=== PATIENT | female | born 1975 | race Caucasian/White ===

== ENCOUNTER 2023-07-26 16:02 | Emergency (ER) | payer OTHER ==
[~2023-07-26] VITALS: Ht 165.1 cm; Wt 98.4 kg
[2023-07-26] MEDS ORDERED: SYNTHROID125 MCG PO (16:32)
[2023-07-26] MEDS ORDERED: PROGESTERONE200 MG PO (16:33)
[2023-07-26] MEDS ORDERED: ESTRACE1 MG PO (16:34)
[2023-07-26] MEDS ORDERED: CEPHALEXIN250 M1 PO (16:34)
[2023-07-26] MEDS ORDERED: CYTOMEL5 MCG PO (16:35)
[2023-07-26 16:41] LABS: BILIRUBIN, URINE NEGATIVE (negative); BLOOD/HGB, URINE NEGATIVE (Negative); KETONE, URINE NEGATIVE (Negative); LEUK ESTERASE, URINE NEGATIVE (negative); NITRITE, URINE NEGATIVE (negative)
[2023-07-26 16:48] LABS: BACTERIA, URINE NONE SEEN /hpf (negative); CASTS, URINE NONE SEEN \\lpf; COLLECTION TYPE, URINE CLEAN CATCH; CRYSTALS, URINE NONE SEEN (0-1+); EPITHELIAL CELLS, URINE SQUAMOUS 1+ /lpf (0-1+); RED BLOOD CELLS, URINE 0-1 /hpf (0-5); REFLEX CULTURE, URINE No (No); WHITE BLOOD CELLS, URINE 0-1 /HPF (0-5)
[2023-07-26 18:02] VITALS: BP 140/103
== END 2023-07-26 18:02 | disposition home or self-care (01) ==
LOC: ED 16:02
PROVIDERS: Emergency Medicine
DX: R10.9 Unspecified abdominal pain (principal); E03.9 Hypothyroidism, unspecified; Z88.5 Allergy status to narcotic agent; Z91.048 Other nonmedicinal substance allergy status; Z79.899 Other long term (current) drug therapy
CPT/HCPCS: 74176; 81001; 99284-25

== ENCOUNTER 2025-01-11 22:31 | Emergency (ER) | payer OTHER ==
[~2025-01-11] VITALS: Ht 162.6 cm; Wt 76.8 kg
[~2025-01-11 22:31] MED LIST: CEPHALEXIN250 M1 PO; CYTOMEL5 MCG PO; ESTRACE1 MG PO; PROGESTERONE200 MG PO; SYNTHROID125 MCG PO
[2025-01-12] MEDS ORDERED: BACLOFEN5 MG PO (00:13)
[2025-01-12] MEDS ORDERED: HYDROXYZINE HCL10 MG PO (00:15)
[2025-01-12 00:27] LABS: BILIRUBIN, URINE NEGATIVE (negative); BLOOD/HGB, URINE NEGATIVE (Negative); KETONE, URINE TRACE (Negative); LEUK ESTERASE, URINE NEGATIVE (negative); NITRITE, URINE NEGATIVE (negative)
[2025-01-12 00:33] LABS: BASOPHILS 0.5 % (0-2); EOSINOPHILS 0.5 % (0-6); HEMATOCRIT 45.2 % (35.0-50.0); HEMOGLOBIN 15.6 g/dL (12.0-18.0); LYMPHOCYTES 22.6 % (24-44); MCHC 34.6 g/dl (30-36); MCV 89.6 fl (81-99); MONOCYTES 4.9 % (0-12); NEUTROPHILS 71.5 % (39-80); PLATELET COUNT 361 K/uL (140-440); RBC 5.05 M/ul (4.3-5.7); RDW 13.5 (10.5-15.0)
[2025-01-12 00:43] LABS: AMPHETAMINES, URINE NEGATIVE (NEGATIVE); BARBITURATES, URINE NEGATIVE (NEGATIVE); BENZODIAZEPINE, URINE NEGATIVE (NEGATIVE); BUPRENORPHINE, URINE NEGATIVE (NEGATIVE); CANNABINOID, URINE POSITIVE (NEGATIVE); COCAINE, URINE NEGATIVE (NEGATIVE); ECSTASY, URINE NEGATIVE (NEGATIVE); FENTANYL, URINE NEGATIVE (NEGATIVE); METHADONE, URINE NEGATIVE (NEGATIVE); OPIATES, URINE NEGATIVE (NEGATIVE); OXYCODONE, URINE NEGATIVE (NEGATIVE); PHENCYCLIDINE, URINE NEGATIVE (NEGATIVE)
[2025-01-12] MEDS ORDERED: HYDROCODONE/ACETA 5/325 TAB PO ONE (00:45)
[2025-01-12 00:58] LABS: ACETAMINOPHEN 2 ug/mL (10-30); ALBUMIN 3.8 g/dL (3.4-5.0); ALCOHOL, MEDICAL 162 ng/dL (<3); ALKALINE PHOSPHATASE 153 U/L (46-116); ALT (SGPT) 23 U/L (14-59); ANION GAP 8.9 (7-21); AST (SGOT) 20 U/L (15-37); BILIRUBIN, TOTAL 0.3 mg/dL (0.2-1.0); BUN/CREATININE RATIO 16.52 (6.0-28.6); CALCIUM 9.6 mg/dL (8.5-10.1); CARBON DIOXIDE 19 mmol/L (21-32); CHLORIDE 98 mmol/L (98-107); CREATININE, SERUM 1.21 mg/dL (0.55-1.02); GLOMERULAR FILTRATION RATE,EST 55 mL/min (>60); POTASSIUM 3.9 mmol/L (3.5-5.1); PROTEIN, TOTAL 7.6 g/dL (6.4-8.2); SALICYLATE 1.6 mg/dL (2.8-20.0); TSH, 3RD GENERATION 0.409 uIU/mL (0.358-3.740); UREA NITROGEN 20 mg/dL (7-18)
[2025-01-12 01:11] LABS: CORONAVIRUS COVID-19 AG NEGATIVE (NEGATIVE)
[2025-01-12] MEDS ORDERED: SODIUM CHLORIDE 0.9% 1,000 ML IV PRN (01:45)
[2025-01-12 02:58] LABS: ANION GAP 17.1 (7-21); BUN/CREATININE RATIO 18.55 (6.0-28.6); CALCIUM 8.8 mg/dL (8.5-10.1); CREATININE, SERUM 0.97 mg/dL (0.55-1.02); POTASSIUM 4.1 mmol/L (3.5-5.1)
[2025-01-12 03:26] VITALS: BP 128/88
[2025-01-12] MEDS ORDERED: HYDROCODONE BIT/ACETAMINOPHEN 5/325 MG 1 TAB HOME.PACK PO ONE (03:30)
== END 2025-01-12 03:27 | disposition home or self-care (01) ==
LOC: ED 22:31
PROVIDERS: Internal Medicine
DX: S23.41XA Sprain of ribs, initial encounter (principal); F43.20 Adjustment disorder, unspecified; E87.1 Hypo-osmolality and hyponatremia; X58.XXXA Exposure to other specified factors, initial encounter; Z88.5 Allergy status to narcotic agent; Z79.890 Hormone replacement therapy; Z79.899 Other long term (current) drug therapy; M19.90 Unspecified osteoarthritis, unspecified site
CPT/HCPCS: 36415; 71045; 80048; 80053; 80307; 81003; 84443; 84703; 85025; 96360; 99285-25; A9270; G0480; J7030; U0002